=== PATIENT | male | born 1965 | race Two or more races ===

== ENCOUNTER 2024-07-16 17:01 | Emergency (ER) | payer MEDICAID, SELFPAY ==
--- NOTE | 2024-07-16 17:28 | XR_ITS ---
Examination:Left hip AP, lateral, AP pelvis 3 views Technique: Hip AP lateral, AP pelvis, 3 views Exam date and time:July 16, 2024 1733 hours INDICATIONS: Clinical diagnosis abscess left side of the hip FINDINGS: Soft tissue swelling lateral and above the left hip No left hip fracture or dislocation No cortical bone destruction involving the left hip or pelvis Mild bilateral hip osteoarthritis Dystrophic appearing ossification inferior to the left pubic ramus IMPRESSION: Soft tissue prominence above and lateral to the left hip No cortical bone destruction involving the left hip or adjacent pelvis.
--- NOTE | 2024-07-16 17:30 | PD.EDRME ---
Rapid Medical Screening Exam E Arrival date/time: 07/16/24 17:01 59-year-old male with no known medical history presents to the emergency room with a chief complaint of an abscess to his left hip. Patient states it began 4 days ago after being bit by a spider. Patient states that is progressively gotten worse and is causing him discomfort. I have greeted and performed a focused initial assessment of this patient. A comprehensive ED assessment and evaluation of the patient, analysis of all test results, and completion of the medical decision making process will be conducted by additional ED providers. Chief Complaint: Skin/Abscess/Foreign Body Vital signs reviewed by provider: Yes
[2024-07-16 17:31] VITALS: BP 112/76; PULSE 80; RESP 18; TEMP 37.3; O2SAT 97; BMI 25.1
[2024-07-16 18:01] LABS: Lactate (Lactic Acid) 2.7 mMol/L (0.4-2.0)
[2024-07-16 18:04] LABS: Basophils # (Auto) 0.1 Thou/mm3 (0.0-0.2); Basophils % (Auto) 1 % (0-2.5); Eosinophils # (Auto) 0.2 Thou/mm3 (0.0-0.5); Eosinophils % (Auto) 1 % (0-10); Hematocrit 36.7 % (41.0-53.0); Hemoglobin 12.1 g/dL (13.5-16.0); Immature Granulocytes % (Auto) 1 % (0-0); Lymphocytes # (Auto) 1.4 Thou/mm3 (1.0-4.8); Lymphocytes % (Auto) 11 % (10-50); Mean Corpuscular Hemoglobin 27.7 pg (25.0-35.0); Mean Corpuscular Volume 84 fL (80-100); Monocytes # (Auto) 0.7 Thou/mm3 (0.0-0.8); Monocytes % (Auto) 6 % (0-12); Neutrophils # (Auto) 9.8 Thou/mm3 (1.8-7.7); Neutrophils % (Auto) 80 % (37-80); Nucleated Red Blood Cell % 0 /100 WBC (0); Platelet Count 422 Thou/mm3 (140-440); RDW Standard Deviation 40.9 fL (35.1-43.9); Red Blood Count 4.37 Miln/mm3 (4.50-5.90); White Blood Count 12.2 Thou/mm3 (3.8-10.6)
[2024-07-16 18:29] LABS: Alanine Aminotransferase 65 U/L (10-49); Albumin/Globulin Ratio 0.8 (1.2-2.2); Alkaline Phosphatase 147 U/L (46-116); Anion Gap 9 (7-16); Aspartate Amino Transferase 73 U/L (0-34); BUN/Creatinine Ratio 19 Ratio (12-20); Bilirubin,Total 0.6 mg/dL (0.3-1.2); Blood Urea Nitrogen 13 mg/dL (9-23); Calcium 9.6 mg/dL (8.3-10.6); Calcium (Corrected) 9.6 mg/dL (8.5-10.1); Carbon Dioxide 27.3 mMol/L (20.0-31.0); Chloride 99 mMol/L (98-107); Creatinine (Component) 0.7 mg/dL (0.6-1.3); Estimated Creatinine Clearance 110.8 mL/min (>60); Globulin 5.1 gm/dL (2.3-3.5); Glucose 109 mg/dL (74-106); Osmolality,Calculated 271 (275-295); Potassium 3.5 mMol/L (3.4-5.1); Sodium 135 mMol/L (136-145); Total Protein 9.1 gm/dL (5.7-8.2); eGFR > 60 See Note
[2024-07-16] MEDS: CLINDAMYCIN/NS 600 MG IVPB 600 MG/50 ML BAG 100 MG IV (19:52)
[2024-07-16 20:04] LABS: Collection Type, Urine Clean Catch
--- NOTE | 2024-07-16 20:28 | EDNOTE_ITS ---
ED Skin Abcess FB-RME/HPI General Chief complaint: Skin/Abscess/Foreign Body Stated complaint: LEFT HIP ABSCESS Time Seen by Provider: 07/16/24 19:52 Source: patient Arrival date/time: 07/16/24 17:01 Mode of arrival: ambulatory Limitations: no limitations RME / HPI RME / HPI narrative: 07/16/24 17:01 59-year-old male with no known medical history presents to the emergency room with a chief complaint of an abscess to his left hip. Patient states it began 4 days ago after being bit by a spider. Patient states that is progressively gotten worse and is causing him discomfort. I have greeted and performed a focused initial assessment of this patient. A comprehensive ED assessment and evaluation of the patient, analysis of all test results, and completion of the medical decision making process will be conducted by additional ED providers. Dr. Suarez?s Main ED Evaluation: 59-year-old male with history of hypertension and chronic substance use who presents to the emergency department for complaints of worsening abscess to this left hip. Patient states he has been sleeping on the floor at his brother's house and thinks he may have scrapped his skin. Patient comes in due to worsening pain and discomfort. Patient denies any other complaints. 07/16/2024 Procedure: Patient underwent successful incision and drainage of left flank abscess, with 50-100 mL purulent output. Abscess area adequately suctioned, patient counseled on keeping the area dry clean and replace bandages frequently. He was given IV clindamycin, ketorolac and mupirocin ointment. Plan: Patient will be discharged with mupirocin topical, celecoxib and clindamycin for 5 days. Plan of care discussed with attending Dr Suarez , Jose Lao M.D. PGY2 Related Data Home Medications ?Medication ?Instructions ?Recorded ?Confirmed methadone 5 mg tablet 5 mg PO QDAY 02/14/22 04/06/22 Previous Rx's ?Medication ?Instructions ?Recorded ibuprofen 600 mg tablet 600 mg PO Q6H #30 tabs 05/23/23 celecoxib 100 mg capsule 100 mg PO BID #10 caps 07/16/24 clindamycin HCl 300 mg capsule 300 mg PO Q8H 5 days #15 caps 07/16/24 mupirocin 2 % topical ointment 1 applic topical TID #15 grams 07/16/24 Allergies Allergy/AdvReac Type Severity Reaction Status Date / Time No Known Allergies Allergy Verified 04/17/22 15:51 Review of Systems Review of Systems Narrative Review of Systems: GENERAL: Denies fevers/chills or diaphoresis. HEENT: Denies headache or visual/hearing changes. Denies nasal discharge. NEURO: Denies unusual weakness or difficulty speaking. CARDIO: Denies chest pain or palpitations. PULM: Denies SOB, coughing, or wheezing. GI: Denies abdominal pain, N/V/C/D. Reports having BMs URO: Denies burning/itching/pain/urinary changes. MSK/EXT/SKIN: LT flank pain 2/2 abscess PSYCH: Cooperative, pleasant mood & affect. The rest of the review of systems is otherwise negative. Past Medical History Past Medical History NEUROLOGIC: Negative Seizures CARDIAC: Negative Congestive Heart Failure RESPIRATORY: Negative Chronic Obstructive Pulmonary Disease (COPD) GENITOURINARY: Negative Renal Disease MUSCULOSKELETAL: Positive Arthritis ENDOCRINE: Negative Diabetes Mellitus Type 1 or Diabetes Mellitus Type 2 PSYCHO/SOCIAL: Positive Recreational Drug Use OTHER HISTORY: Negative Blood Transfusions, Blood Transfusion Reaction or Anesthesia Reactions Surgical History SURGICAL: Positive Eye Surgery Social History SMOKING STATUS: Never smoker SECOND HAND EXPOSURE: No SUBSTANCE USE: heroin (Daily IV) and methamphetamine (IV) ED Exam Narrative Physical exam: Constitutional Alert, oriented x3 and comfortable HEENT Vision grossly intact. Patent nares. Trachea midline. Respiratory Chest normal on inspection and clear to auscultation bilaterally. Cardiovascular S1 and S2 audible, RRR. No murmurs or carotid bruit. No gross JVD. Abdominal Soft and non tender to palpation in all quadrants. BS + Genitourinary No bladder tenderness, no flank pain. Normal to palpation. Musculoskeletal Extremities tone within normal limits. No LE edema. Neurological CN II - XII grossly intact. Extremity motor and sensation grossly intact. Skin s/p I&D of LT flank abscess, sinus tract noted Psychiatric Patient has a good affect, is cooperative. General Limitations: Present no limitations Course Quality Measures none Orders Category Date Time Status Insert IV NOW Care 07/16/24 17:28 Completed XR hip LT w pelvis 2-3V Stat Exams 07/16/24 17:28 Completed Blood Culture (Lab) Stat Lab 07/16/24 17:53 Received CBC Stat Lab 07/16/24 17:53 Completed CMP [Comprehensive Metabolic Panel] Stat Lab 07/16/24 17:53 Completed Lactate (Lactic Acid) Stat Lab 07/16/24 17:53 Completed Lactic Acid, 3 HR Stat Lab 07/16/24 21:24 Completed Procalcitonin Stat Lab 07/16/24 17:53 Completed UA [Urinalysis] Stat Lab 07/16/24 19:00 Completed Urine Culture Stat Lab 07/16/24 19:00 Received Clindamycin/Ns 600 mg Ivpb [Cleocin/Ns Ivpb] Med 07/16/24 17:29 Discontinued 600 mg in 50 ml IV X1 Ketorolac Inj [Toradol Inj] Med 07/16/24 20:38 Discontinued 30 mg IVP X1 ONE Mupirocin Oint [Bactroban Oint] Med 07/16/24 21:00 Discontinued 1 gm TOP QID Vital Signs Vital signs: Vital Signs Temperature 99.1 F 07/16/24 17:31 Pulse Rate 80 07/16/24 17:31 Respiratory Rate 18 07/16/24 17:31 Blood Pressure 112/76 07/16/24 17:31 Pulse Oximetry (%) 97 07/16/24 17:31 Oxygen Delivery Method Room Air 07/16/24 17:31 Procedures -ED Procedure Comment Procedure: Patient underwent successful incision and drainage of left flank abscess, with 50-100 mL purulent output. Abscess area adequately suctioned, patient counseled on keeping the area dry clean and replace bandages frequently. He was given IV clindamycin, ketorolac and mupirocin ointment. Plan: Patient will be discharged with mupirocin topical, celecoxib and clindamycin for 5 days. Plan of care discussed with attending Jose Hong M.D. PGY2 Abscess I/D Site: other Side (if applicable): left Sedation/analgesia: none Technique: incised with #11 blade Amount of fluid expressed (mL): 75 Irrigation: No Packing used?: none Complications: pain Skin / Abscess / Foreign Body MDM Narrative MDM Narrative:: Scribe Attestation: Ammon Adams am scribing for and in the presence of Dr. Suarez. Provider Notation: Although this document has been carefully reviewed, there may still be some phonetic and other typographical errors. These errors are purely grammatical due to imperfections in the software program and should not be construed in any way to compromise the substance of the patient's medical care during this visit. Patient data External records reviewed:: [facility] previous records Clinical information provided by:: patient Social determinants that could affect healthcare access:: substance use Patient has the following chronic illnesses:: HTN How is presenting disease/condition affected by chronic disease/condition?: u neffected by Evaluation data The following diagnostics were reviewed and interpreted by me:: lab results and radiology exam(s) Lab and/or radiology exams considered but not ordered:: None Interpretation Summary: Examination:Left hip AP, lateral, AP pelvis 3 views Technique: Hip AP lateral, AP pelvis, 3 views Exam date and time:July 16, 2024 1733 hours INDICATIONS: Clinical diagnosis abscess left side of the hip FINDINGS: Soft tissue swelling lateral and above the left hip No left hip fracture or dislocation No cortical bone destruction involving the left hip or pelvis Mild bilateral hip osteoarthritis Dystrophic appearing ossification inferior to the left pubic ramus IMPRESSION: Soft tissue prominence above and lateral to the left hip No cortical bone destruction involving the left hip or adjacent pelvis. Dictated By: Enio Osborn MD Medications / Prescriptions Medications or Prescriptions considered but not ordered:: None Medication administrations:: Medication Administration History Discontinued Medications Clindamycin/Sodium Chloride (Cleocin/Ns Ivpb) 600 mg in 50 mls @ 100 mls/hr IV X1 ONE Stop: 07/16/24 17:58 Last Infusion: 07/16/24 20:56 Dose: Infused Documented By: Admin: 07/16/24 19:52 Dose: 100 mls/hr Documented By: GEORGETTE Ketorolac Tromethamine (Ketorolac Inj 30 Mg/Ml Vial) 30 mg IVP X1 ONE Stop: 07/16/24 20:39 Last Admin: 07/16/24 20:54 Dose: 30 mg Documented By: WILLIAM Mupirocin (Mupirocin Oint 2% 15 Gm Tube) 1 gm TOP QID CECE Stop: 07/23/24 20:59 Last Admin: 07/16/24 21:27 Dose: 1 gm Documented By: WILLIAM As above, if any Consultations Consultation(s) initiated? (list below): No Diagnosis Skin/Abscess Differential Diagnosis: other (Cutaneous abscess, muscular abscess, cellulitis) Most likely diagnosis given after review of the tests above:: Cutaneous abscess Admission Indicated Admission indicated?: not indicated Admission Request Was there a request for admission?: No Disposition Plan Disposition Plan: Discharge Discharge Attestation Discharge Attestation: The patient and all family members were given an opportunity to ask questions and understood the discharge instructions. Discharge instructions specifically effects, indications for sooner follow up or return to the emergency department, and the expected course of current diagnosis. Patient condition: Stable Discharge Plan Plan Patient Disposition: HOME (Self Care) Patient condition on transfer: Stable Prescriptions/Referrals Prescriptions/Med Rec: New celecoxib 100 mg capsule 100 mg PO BID Qty: 10 0RF clindamycin HCl 300 mg capsule 300 mg PO Q8H 5 Days Qty: 15 0RF mupirocin 2 % ointment 1 applic topical TID Qty: 15 0RF No Action methadone 5 mg Tablet 5 mg PO QDAY ibuprofen 600 mg tablet 600 mg PO Q6H Qty: 30 0RF Referrals: Tyler London MD [Primary Care Provider] - In 1 week Problem List Clinical Impression: Cutaneous abscess, Abscess of skin or subcutaneous tissue Patient/Caregiver Discharge Instructions Discharge Activity: resume usual activities Education Materials: Abscess Drainage, ED Abscess, Incision And Drainage Print Language: Kosovan Stand Alone Forms: Ashley Award Info., Work/School Release, Patient Portal Info Letter
[2024-07-16] MEDS: KETOROLAC INJ 30 MG/ML VIAL IVP (20:54)
[2024-07-16 20:55] LABS: Reflex Lactate? Y
[2024-07-16] MEDS: MUPIROCIN OINT 2% 15 GM TUBE TOP (21:27)
[2024-07-16 21:37] LABS: Lactic Acid, 3 HR 1.2 mMol/L (0.4-2.0)
[2024-07-16 21:40] LABS: Bacteria,Urine Rare; Bilirubin,Urine Negative (Negative); Blood,Urine Negative (Negative); Clarity,Urine Clear (Clear/Hazy); Color,Urine Yellow (Lt Yel-Yel); Glucose, Urine Negative (Negative); Ketones,Urine Negative (Negative); Leukocyte Esterase,Urine Negative (Negative); Nitrite,Urine Negative (Negative); Protein,Urine Trace (Neg - Trace); RBC,Urine 3 /hpf (0-3); Specific Gravity,Urine 1.029 (1.001-1.035); Squamous Epithelial Cell,Urine 1 /hpf (0-5); WBC,Urine 1 /hpf (0-5)
--- NOTE | 2024-07-17 03:35 | ESOP_ITS ---
Procedures Procedure Date / Time 07/16/24 10:30PM Procedure Narrative Procedure Narrative: Incision and Drainage Procedure Note PRE-OP DIAGNOSIS: LT flank pain and swelling, abscess PROCEDURE: Incision and drainage of abscess Performing Physician: Jose Lao MD Supervising Physician: Doc Suarez MD PROCEDURE: A timeout protocol was performed prior to initiating the procedure. The area was prepared and draped in the usual, sterile manner. A linear incision was made using a surgical blade along the local skin lines and the purulent material expressed. Suction used to adequately drain all purulent material. T here was minimal bleeding. No packing was done. Mupirocin ointment applied judiciously over the incision and wound was covered with clean gauze. Patient tolerated the procedure well without complications. Standard post-procedure care was explained and return precautions given. Discharge medications: Clindamycin x 5days, Celecoxib and Mupirocin ointment Abscess I/D Indication(s): LT hip abscess Informed consent obtained: from patient Time out done, and the following verified: correct patient, side and site, procedure and patient position Site: other Site: other Side (if applicable): left Sedation/analgesia: none Anesthetic used: without epi Technique: incised with #11 blade Amount of fluid (mL): 75 Irrigation: No Packing used?: none Complications: pain
== END 2024-07-16 22:03 | disposition home or self-care (01) ==
PROVIDERS: Nurse Practitioner Family; Emergency Provider Emergency Medicine; PCP Family Medicine
DX: L02.416 Cutaneous abscess of left lower limb (principal); L02.211 Cutaneous abscess of abdominal wall
CPT/HCPCS: 10060; 36415; 73502; 80053; 81001; 83605; 84145; 85025; 87040; 87086; 96365; 99284; J1885; S0077; A9270; J0737

== ENCOUNTER 2025-02-20 23:02 | Emergency (ER) | payer MEDICAID, SELFPAY ==
[2025-02-20 23:11] VITALS: BP 129/72; PULSE 77; RESP 18; TEMP 36.9; O2SAT 96
--- NOTE | 2025-02-20 23:23 | EDNOTE_ITS ---
ED Medical Clearance RME/HPI General Stated complaint: MEDICAL CLEARANCE Time Seen by Provider: 02/20/25 23:19 Source: patient, RN notes reviewed, old records reviewed and police Arrival date/time: 02/20/25 23:02 Mode of arrival: ambulatory Limitations: no limitations RME / HPI RME / HPI Narrative: 59yom presents to ED for correction clearance. Patient c/o headache after hitting right side of head against police car door frame as he was getting into the car. No LOC reported. Patient denies vision changes, nausea/vomiting or neck pain. 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 Related Information Home Medications ?Medication ?Instructions ?Recorded ?Confirmed methadone 5 mg tablet 5 mg PO QDAY 02/14/22 Previous Rx's ?Medication ?Instructions ?Recorded ibuprofen 600 mg tablet 600 mg PO Q6H #30 tabs 05/23 celecoxib 100 mg capsule 100 mg PO BID #10 caps 07/16 mupirocin 2 % topical ointment 1 applic topical TID #1 5 grams 07/16/24 Allergies Allergy/AdvReac Type Severity Reaction Status Date / Time No Known Allergies Allergy Verified 04/17/22 15:51 Review of Systems Review of Systems Systems Reviewed: All systems reviewed, normal except as documented Constitutional Constitutional: Reports headache(s) Eyes Eyes: Denies blurry vision ENT Ears, Nose, Mouth, and Throat: Reports headache(s) and Denies neck pain Gastrointestinal Gastrointestinal: Denies nausea and Denies vomiting Musculoskeletal Musculoskeletal: Denies neck pain Neurologic Neurologic: Reports headache(s) Past Medical History Past Medical History PSYCHO/SOCIAL: Positive Recreational Drug Use Surgical History OTHER SURGICAL HX: surgical I&D, right wrist Social History SOCIAL: Polysubtance abuse, marijuana, IV drugs, previous alcohol abuse Past Medical History Comments PMH COMMENT: chronic right knee osteomyelitis ED Exam General Limitations: Present no limitations General appearance: Present alert, in no apparent distress and other (Poor hygiene, disheveled) Head Head exam: Present atraumatic, normocephalic and normal inspection Eye Eye exam: Present normal appearance, PERRL and EOMI ENT ENT exam: Present normal exam and mucous membranes moist Neck Neck exam: Present normal inspection and full ROM; Absent tenderness Chest Chest inspection: Present normal inspection and symmetric chest wall rise Respiratory Respiratory exam: Present normal lung sounds bilaterally; Absent respiratory distress Cardiovascular Cardiovascular exam: Present regular rate and normal rhythm Extremities Exam Extremities exam: Present normal inspection and full ROM Back Exam Back exam: Absent paraspinal tenderness or vertebral tenderness Neurological Exam Neurological exam: Present alert and oriented X3 Psychiatric Psychiatric exam: Present normal affect and normal mood Skin Skin exam: Present warm, dry and intact Course Quality Measures none Orders Category Date Time Status Ibuprofen Tab [Motrin Tab] Med 02/20/25 23:29 Discontinued 800 mg PO X1 ONE Vital Signs Vital signs: Vital Signs Temperature 98.5 F 02/20/25 23:11 Pulse Rate 77 02/20/25 23:11 Respiratory Rate 18 02/20/25 23:11 Blood Pressure 129/72 02/20/25 23:11 Pulse Oximetry (%) 96 02/20/25 23:11 Oxygen Delivery Method Room Air 02/20/25 23:11 Medical Clearance MDM Narrative MDM Narrative:: 59yom presents to ED for correction clearance. Patient c/o headache after hitting right side of head against police car door frame as he was getting into the car. No LOC reported. Patient denies vision changes, nausea/vomiting or neck pain. 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 Patient is alert and oriented x3, neurologically intact. No physical evidence of head trauma. Recommended Motrin/Tylenol, ice application prn pain. Medically cleared for correction. Patient data External records reviewed:: [facility] previous records ( ED visit for abscess) Clinical information provided by:: patient Social determinants that could affect healthcare access:: substance use Patient has the following chronic illnesses:: Chronic right knee osteomyelitis, drug use How is presenting disease/condition affected by chronic disease/condition?: uneffected by Evaluation data The following diagnostics were reviewed and interpreted by me:: other (specify) (None) Lab and/or radiology exams considered but not ordered:: CT head: Low mechanism of injury Interpretation Summary: na Medications / Prescriptions Medications or Prescriptions considered but not ordered:: None Medication administrations:: Medication Administration History Discontinued Medications Ibuprofen (Ibuprofen Tab 400 Mg Tablet) 800 mg PO X1 ONE Stop: 02/20/25 23:30 Last Admin: 02/20/25 23:42 Dose: 800 mg Documented By: OA Above medication administered in ED Consultations Consultation(s) initiated? (list below): No Diagnosis Medical Clearance Differential Diagnosis: other (Head injury, headache, concussion, syncope, ICH, skull fracture, contusion) Most likely diagnosis given after review of the tests above:: Headache, head injury Admission Indicated Admission indicated?: not indicated Admission Request Was there a request for admission?: No Disposition Plan Disposition Plan: Discharge Discharge Attestation Discharge Attestation: The patient and all family members were given an opportunity to ask questions and understood the discharge instructions. Discharge instructions specifically effects, indications for sooner follow up or return to the emergency department, and the expected course of current diagnosis. Patient condition: Stable Discharge Plan Plan Patient Disposition: Long-Term/Court/Law Patient condition on transfer: Stable Prescriptions/Referrals Prescriptions/Med Rec: No Action methadone 5 mg Tablet 5 mg PO QDAY celecoxib 100 mg capsule 100 mg PO BID Qty: 10 0RF mupirocin 2 % ointment 1 applic topical TID Qty: 15 0RF ibuprofen 600 mg tablet 600 mg PO Q6H Qty: 30 0RF Problem List Clinical Impression: Head injury, Headache Patient/Caregiver Discharge Instructions Education Materials: ED Head Injury (Adult) Additional Instructions: Ibuprofen or tylenol can be taken as needed for pain. Print Language: Armenian DERECK/EBONI Supervising Physician DERECK/CASH CONTROL SPECIALIST Supervising Physician: Genaro
[2025-02-20] MEDS: IBUPROFEN TAB 400 MG TABLET 800 MG PO (23:42)
== END 2025-02-21 00:03 ==
LOC: SERX 02-21 00:23
PROVIDERS: Emergency Provider Emergency Medicine
DX: Z02.89 Encounter for other administrative examinations (principal); S09.90XA Unspecified injury of head, initial encounter; W22.8XXA Striking against or struck by other objects, initial encounter; Y93.89 Activity, other specified; Y92.810 Car as the place of occurrence of the external cause
CPT/HCPCS: 99282; A9270